=== PATIENT | male | born 1975 | race Caucasian/White ===

== ENCOUNTER 2018-06-14 16:06 | Emergency (ER) | payer SELFPAY ==
[2018-06-14 16:20] VITALS: BP 104/66; PULSE 87; TEMP 98.3; BMI 21.2
--- NOTE | 2018-06-14 16:41 | PDOC ---
History of Present Illness - General Chief Complaint: Revisit,Wound Recheck Stated Complaint: WOUND CHECK - History of Present Illness Initial Comments: 43-year-old male presents for reevaluation of wound on the posterior aspect of the right leg. He's had no issues since his initial evaluation and he's been treating the wound wet-to-dry dressings. 06/14/18 16:39 Past History - Past Medical History Allergies/Adverse Reactions: Allergies Allergy/AdvReac Type Severity Reaction Status Date / Time No Known Allergies Allergy Verified 06/14/18 16:20 Home Medications: Ambulatory Orders NK [No Known Home Medication] 06/14/18 COPD: No - Suicide/Smoking/Psychosocial Hx Smoking History: Never smoked Information on smoking cessation initiated: No Hx Alcohol Use: No Drug/Substance Use Hx: No Review of Systems - Review of Systems All Other Systems: Reviewed and Negative *Physical Exam - Vital Signs Last Vital Signs Temp Pulse Resp BP Pulse Ox 98.3 F 87 20 104/66 99 06/14/18 16:17 06/14/18 16:17 06/14/18 16:17 06/14/18 16:17 06/14/18 16:17 - Physical Exam Comments: The wound on the posterior aspect of the right leg is granulating nicely. There is normal surrounding skin color and temperature. The pain Soft and nontender. There is no evidence of induration fluctuance or sensitivity. He is neurovascularly intact. 06/14/18 16:39 *DC/Admit/Observation/Transfer Diagnosis at time of Disposition: Visit for wound check - Discharge Dispostion Disposition: HOME Condition at time of disposition: Stable Decision to Admit order: No - Referrals - Patient Instructions Additional Instructions: Your wound looks good. There is no indication of infection. He may wash the area with soap and water and leave it open to air when you are home. When you are out he may cover with a Band-Aid. Return if you have any redness swellings sensitivity or drainage otherwise may follow up with her primary care physician in one to 2 days for further evaluation and treatment options. - Post Discharge Activity
== END 2018-06-14 16:47 | disposition home or self-care (01) ==
LOC: JERFT 16:06
DX: Z48.00 Encounter for change or removal of nonsurgical wound dressing (principal)
CPT/HCPCS: 99281-25